=== PATIENT | female | born 1940 | race Two or more races ===

== ENCOUNTER 2024-08-29 06:30 | Emergency (ER) | payer OTHER ==
[~2024-08-29] VITALS: Ht 157.5 cm; Wt 57.6 kg
[~2024-08-29 06:30] MED LIST: COZAAR50 MG; ELIQUIS5 MG; LEVOTHYROXINE25 MCG; LEVSIN/SL0.125 MG SL; METRONIDAZOLE500 MG PO; NORVASC5 MG; PEPCID AC20 MG PO; TOPROL XL25 M1; TRICOR145 MG
[2024-08-29 09:33] LABS: HEMATOCRIT 45.7 % (36.0-45.00); HEMOGLOBIN 16.1 g/dL (12.0-15.00); MEAN CELL VOLUME 95.4 fL (80.00-100.00); MEAN CORPUSCULAR HEMOGLOBIN 33.5 pg (27.00-32.0); MEAN CORPUSCULAR HGB CONC 35.1 g/dl (32.0-36.0); PLATELET COUNT 295 K/uL (150-450); RED BLOOD COUNT 4.79 M/uL (4.00-6.00); RED CELL DISTRIBUTION WIDTH 13.5 % (11.5-14.5)
[2024-08-29 09:51] LABS: ALBUMIN 2.8 gm/dL (3.4-5.0); BILIRUBIN TOTAL 0.82 mg/dL (0.3-1.2); CALCIUM 10.7 mg/dL (8.5-10.1); CREATININE SERUM 0.62 mg/dL (0.55-1.02); GFR 92.15; TOTAL PROTEIN 7.8 gm/dL (6.4-8.2)
[2024-08-29 09:56] LABS: D DIMER 1.05 MG/L; PARTIAL THROMBOPLASTIN TIME 30.1 SECONDS (22.0-34.0)
[2024-08-29 09:59] LABS: INR 1.24; PROTHROMBIN TIME 13.3 SECONDS (9.0-11.5)
[2024-08-29 10:01] LABS: POTASSIUM 2.8 mEq/L (3.5-5.1)
[2024-08-29 10:09] LABS: PH,URINE 7.5 (5.0-8.0); URINE APPEARANCE Clear; URINE BILIRRUBIN Negative (NEGATIVE); URINE COLOR Yellow; URINE GLUCOSE Negative (NEGATIVE); URINE KETONE Negative (NEGATIVE); URINE LEUKOCYTE Trace; URINE NITRATE Negative; URINE PROTEIN Trace (NEGATIVE); URINE UROBILINOGEN 0.2 E.U./dl
[2024-08-29 10:15] LABS: URINE EPITHELIAL CELLS 11.4 uL (0.0-38.8); URINE RBC 54.3 uL (0.0-20.8); URINE WBC 26.2 uL (0.0-23.2)
[2024-08-29] MEDS ORDERED: POTASSIUM BICARBONATE/CIT AC 25 MEQ TABLET.EFF PO ONE (10:15)
[2024-08-29 10:31] LABS: URINE BLOOD TRACE
[2024-08-29 12:31] LABS: CALCIUM 10.1 mg/dL (8.5-10.1); CREATININE SERUM 0.64 mg/dL (0.55-1.02); GFR 88.84; POTASSIUM 3.29 mEq/L (3.5-5.1)
== END 2024-08-29 18:24 | disposition home or self-care (01) ==
LOC: ER 06:30
PROVIDERS: General Practice
DX: R55 Syncope and collapse (principal); E03.8 Other specified hypothyroidism; I10 Essential (primary) hypertension
CPT/HCPCS: 70450; 71045; 71260; 99284; Q9965